=== PATIENT | male | born 1975 | race Two or more races ===

== ENCOUNTER 2018-02-07 09:49 | Emergency (ER) | payer OTHER ==
[~2018-02-07] VITALS: Ht 180.3 cm; Wt 149.7 kg
[~2018-02-07 09:49] MED LIST: ALLO300T2 PO; HYDR-1421; IBUP800T41
[2018-02-07 09:59] VITALS: BP 176/112
== END 2018-02-07 11:47 | disposition home or self-care (01) ==
LOC: ER 09:49
DX: S63.502A Unspecified sprain of left wrist, initial encounter (principal); S60.222A Contusion of left hand, initial encounter; Z88.6 Allergy status to analgesic agent; X58.XXXA Exposure to other specified factors, initial encounter; Y93.89 Activity, other specified; Y92.69 Other specified industrial and construction area as the place of occurrence of the external cause; Y99.8 Other external cause status
CPT/HCPCS: 29125; 73110; 73130

== ENCOUNTER 2020-01-11 00:31 | Inpatient (IN) | payer OTHER ==
[~2020-01-11] VITALS: Ht 177.8 cm; Wt 138.0 kg
[2020-01-11] MEDS ORDERED: dilTIAZem 25 MG/5 ML VIAL IV ONE (00:48)
[2020-01-11 01:06] LABS: Basophils # (auto) 0 10 ^3/uL (0-0.2); Basophils % (auto) 0.4 % (0.0-2.0); Eosinophils # (auto) 0 10 ^3/uL (0-0.8); Eosinophils % (auto) 0.1 % (0.0-7.0); Hematocrit 47.5 % (41.0-53.0); Hemoglobin 15.9 g/dL (13.5-17.5); Lymphocytes % (auto) 8.7 % (10.0-50.0); Mean Corpuscular Hemoglobin 28.8 pg (28.0-32.0); Mean Corpuscular Hgb Conc. 33.5 g/dL (32.0-36.0); Monocytes # (auto) 1.1 10 ^3/uL (0-1.3); Neutrophils % (auto) 80.8 % (37.0-80.0); Nucleated Red Blood Cells % 0.1 %; Platelet Count (auto) 225 10^3/uL (140-450); Red Blood Cells 5.52 10^6/uL (4.5-5.90); Red Cell Distribution Width 16.7 % (11.8-14.3); White Blood Cell 11.2 10^3/uL (4.4-10.8)
[2020-01-11 01:26] LABS: Calcium 8.8 mg/dL (8.5-10.1); Potassium 4.1 mmol/L (3.5-5.1)
[2020-01-11 01:28] LABS: BUN/Creatinine Ratio 12.7
[2020-01-11 01:32] LABS: Bilirubin, Total 0.7 mg/dL (0.2-1.0); Total Protein 7.3 g/dL (6.4-8.2)
[2020-01-11 01:38] LABS: INR 1.03 (0.9-1.15); Partial Thromboplastin Time 28.8 sec (23.0-31.2)
[2020-01-11] MEDS ORDERED: IOHEXOL 350 MG/ML 100ML IJ ONE (01:54)
[2020-01-11] MEDS ORDERED: HYDROmorphone HCL 2 MG/ML VL IV ONE ×2 (02:00→04:15)
[2020-01-11] MEDS ORDERED: ONDANSETRON HCL 4 MG/2 ML VIAL IV ONE (02:00)
[2020-01-11] MEDS ORDERED: ENOXAPARIN SOD 100 MG/1 ML SYRINGE SC ONE (03:30)
[2020-01-11] MEDS ORDERED: ZOLPIDEM TARTRATE 5 MG TAB PO PRN (06:15)
[2020-01-11] MEDS ORDERED: DEXTROSE (50%) 50ML SYRG IV PRN (06:15)
[2020-01-11] MEDS ORDERED: NITROGLYCERIN 0.4 MG SL TAB SL PRN (06:15)
[2020-01-11] MEDS ORDERED: ONDANSETRON HCL 4 MG/2 ML VIAL IV PRN (06:15)
[2020-01-11] MEDS ORDERED: ACETAMINOPHEN 325 MG TAB PO PRN (06:15)
[2020-01-11] MEDS ORDERED: SODIUM CHLORIDE 0.9% 1,000 ML IV SCH (06:15)
[2020-01-11] MEDS: HYDROmorphone HCL 2 MG/ML VL IV PRN ×4 (07:50→22:20)
[2020-01-11] MEDS ORDERED: ACCU-CHEK COMFORT CURVE STRIP VI SCH (08:00)
[2020-01-11] MEDS ORDERED: InsuLIN REG 1unit/0.01ml Soln (100units/ml) SC SCH (08:00)
[2020-01-11] MEDS ORDERED: CARVEDILOL 3.125 MG TAB PO SCH ×2 (10:00→22:00)
[2020-01-11] MEDS ORDERED: CLOPIDOGREL BISULFATE 75 MG TAB PO SCH (10:00)
[2020-01-11] MEDS ORDERED: LISINOPRIL 5 MG TAB PO SCH (10:00)
[2020-01-11] MEDS ORDERED: ENOXAPARIN SOD 100 MG/1 ML SYRINGE SC SCH (10:00)
[2020-01-11] MEDS ORDERED: ENOXAPARIN SOD 120 MG/0.8 ML SYRINGE SC SCH (10:00)
[2020-01-11] MEDS: DOCUSATE SOD 100 MG CAP PO SCH (10:10)
[2020-01-11] MEDS: ASPirin 81 mg TAB PO SCH (10:11)
[2020-01-11] MEDS: ENOXAPARIN SOD 120 MG/0.8 ML SYRINGE SC SCH ×2 (10:12→23:09)
[2020-01-11] MEDS ORDERED: HYDR-531 PO (11:30)
[2020-01-11] MEDS ORDERED: COLC1CAP PO (11:32)
[2020-01-11] MEDS ORDERED: PRED20TA2 PO (11:32)
[2020-01-11] MEDS ORDERED: ASCO100076 PO (11:45)
[2020-01-11] MEDS ORDERED: MULT-928 PO (11:45)
--- NOTE | 2020-01-11 12:19 | NUR ---
Pt being admitted to ICU LIZZETHKT admitted to ICU via gurney on air sampling and monitoring, and portable 02. Patient transfered to bed, connected to ICU monitoring and oxygen, and weighed by bedscale. Patient oriented to Mark Anthony paez RN, unit, room, bed, and unit policies regarding patient care and visiting hours. All questions and concerns addressed, patient verbalized understanding.
[2020-01-11 13:20] VITALS: BP 125/99
[2020-01-11 13:30] VITALS: BP 125/99
--- NOTE | 2020-01-11 13:55 | NUR ---
FAMILY UPDATED ON PATIENT STATUS. ALL QUESTIONS AND CONCERNS ADDRESSED AT THIS TIME
--- NOTE | 2020-01-11 14:22 | NUR ---
ECHO AT BEDSIDE
[2020-01-11 16:00] VITALS: BP 108/78
--- NOTE | 2020-01-11 17:25 | NUR ---
PATIENT RESTING WATCHING TELEVISION REPORTS NO PAIN OR DISTRESS AT THIS TIME
--- NOTE | 2020-01-11 19:35 | NUR ---
REPORT RECEIVED AND ASSUMED CARE; SEE INTERVENTIONS FOR ASSESSMENT; VS STABLE AT THIS TIME, WITH PT. ON NC AT 5L; PT. IN BED, ON HIS CELL PHONE, AND IN A PLEASANT MOOD; WILL CONT. TO MONITOR.
[2020-01-11 20:00] VITALS: BP 105/74
[2020-01-11 22:00] VITALS: BP 106/80
[2020-01-11] MEDS ORDERED: ATORVASTATIN 20 MG TAB PO SCH ×2 (22:00)
[2020-01-12] VITALS (8 sets, daily range): BP systolic 90–145; BP diastolic 63–96
[2020-01-12 03:52] LABS: Basophils # (auto) 0.1 10 ^3/uL (0-0.2); Basophils % (auto) 1.3 % (0.0-2.0); Eosinophils # (auto) 0.1 10 ^3/uL (0-0.8); Eosinophils % (auto) 2.1 % (0.0-7.0); Hematocrit 44.4 % (41.0-53.0); Hemoglobin 14.7 g/dL (13.5-17.5); Lymphocytes # (auto) 2.4 10 ^3/uL (0.4-5.4); Lymphocytes % (auto) 32.5 % (10.0-50.0); Mean Corpuscular Hemoglobin 28.9 pg (28.0-32.0); Mean Corpuscular Hgb Conc. 33.1 g/dL (32.0-36.0); Mean Corpuscular Volume 87.1 fL (80.0-100.0); Monocytes % (auto) 13.6 % (0.0-12.0); Neutrophils # (auto) 3.7 10 ^3/uL (1.6-8.6); Neutrophils % (auto) 50.5 % (37.0-80.0); Nucleated Red Blood Cells % 0.1 %; Platelet Count (auto) 215 10^3/uL (140-450); Red Cell Distribution Width 16.9 % (11.8-14.3); White Blood Cell 7.3 10^3/uL (4.4-10.8)
[2020-01-12 04:08] LABS: Calcium 8.7 mg/dL (8.5-10.1); Magnesium 2.1 mg/dL (1.6-2.6); Potassium 4.5 mmol/L (3.5-5.1)
[2020-01-12 04:14] LABS: BUN/Creatinine Ratio 12.9
[2020-01-12] MEDS: HYDROmorphone HCL 2 MG/ML VL IV PRN ×4 (04:23→20:08)
[2020-01-12] MEDS: ASPirin 81 mg TAB PO SCH (09:59)
[2020-01-12] MEDS ORDERED: predniSONE 20 MG TAB PO SCH (10:00)
[2020-01-12] MEDS ORDERED: COLCHICINE 0.6 MG CAP PO SCH (10:00)
[2020-01-12] MEDS ORDERED: PANTOPRAZOLE 40 MG TAB PO SCH (10:00)
--- NOTE | 2020-01-12 10:00 | NUR ---
CARMENCITA VISITS AND EXMAINES PATIENT - ORDERS RECEIVED.
[2020-01-12] MEDS: DOCUSATE SOD 100 MG CAP PO SCH (10:01)
[2020-01-12] MEDS: ENOXAPARIN SOD 120 MG/0.8 ML SYRINGE SC SCH (10:02)
--- NOTE | 2020-01-12 10:45 | NUR ---
PATIENT VOIDED 400 ML DK RED URINE PER URINAL-WILL INFORM DR GARCIA.
--- NOTE | 2020-01-12 11:15 | NUR ---
DR GARCIA VISITS AND EXAMINES PATIENT - ORDERS RECEIVED. SPOKE TO PEDRO IN CM - STATES NEED PCR SWAB FOR COVID FOR ABDUL. [place] ASSISTANT NOTIFIED LAB OF NEED FOR PCR SWAB
--- NOTE | 2020-01-12 11:40 | NUR ---
COVID PCR TEST OBTAINED AND WALKED TO LAB.
--- NOTE | 2020-01-12 12:00 | NUR ---
01/12/20 1156 Faxed to [facility] clinical packet with request to transfer the patient to a [facility] facility, post stabilization was sent with the packet.
--- NOTE | 2020-01-12 12:15 | NUR ---
[facility] - UPDATED ON PATIENT CONDITION - STATES WILL CALL LATER AFTER CHECKING WITH FRANKO ANDERSON REGARDING PATIENT'S CASE.
--- NOTE | 2020-01-12 15:30 | NUR ---
DR GUERRERO VISITS AND EXAMINES PATIENT - NO ORDERS RECEIVED.
--- NOTE | 2020-01-12 15:30 | NUR ---
RECEIVED CALL FROM HONG AT [facility] ROOM NUMBER AND ETA FOR 2000 TRANSFER TO [facility]. IMAGING RECORDS ORDERED. Addendum: 01/12/20 at 1641 by Jamila Garza RN DR CM DIAL
--- NOTE | 2020-01-12 16:00 | NUR ---
[employer] SALESPERSON INFORMED PATIENT OF TRANSFER TO [place] THIS PM. PATIENT SIGNED CONSENT FOR TRANSFER. UA/C&S URINE SENT TO LAB PER ORDERS. AWAITING PCR COVID RESULT.
--- NOTE | 2020-01-12 16:15 | NUR ---
PLACED CALL TO DR GARCIA RE: TRANSFER TO [facility] PLANNED FOR THIS PM.
--- NOTE | 2020-01-12 16:45 | NUR ---
PAGED DR GARCIA AGAIN TO NOTIFY OF PLANNED TRANSFER TO [place] THIS PM.
--- NOTE | 2020-01-12 17:00 | NUR ---
PANUS CLEANSED WITH SOAP AND WATER, DRIED AND ANTI-FUNGAL BREAM APPLIED - PILLOWCASE APPLIED TO PANUS. NEW ABD BINDER APPLIED.
[2020-01-12 17:05] LABS: Urine Amorphous Crystal FEW /hpf (None Seen); Urine Bacteria NONE SEEN /hpf (None Seen); Urine Blood 3+ /uL (Negative); Urine Mucus FEW (None Seen); Urine Specific Gravity 1.015 (1.001-1.035); Urine WBC 24 /hpf (0 - 3)
--- NOTE | 2020-01-12 19:30 | NUR ---
report received and assumed care; see interventions for assessment; vs stable at this time with patient on NC at 4L; pt. sitting in bed watching t.v. and on cell phone with -pleasant; pt. having pain 10/22 and will medicate; pt. readjusted for comfort; pt. to transfer to [facility] when ems arrives-ETA of 20:00; will cont. to monitor.
--- NOTE | 2020-01-12 21:05 | NUR ---
EMS arrived on unit for transport of patient; report and pt. information packet given to EMS medic.
--- NOTE | 2020-01-12 21:15 | NUR ---
report given to [facility], step-down unit/ SUZETTE Brandon with # ; pt. to go to # [phone]; SUZETTE Brandon direct # .
--- NOTE | 2020-01-12 21:20 | NUR ---
pt. off unit with [facility] and to transport to [facility], rm[address][id number].; pt. v/s stable at this time.
== END 2020-01-12 21:20 | disposition short-term general hospital (02) | DRG 175 ==
LOC: EDUNIT# 00:31 → EDBD 00:31 → ER 00:36 → OVERFLOW 00:37 → ICU WEST 14:16
PROVIDERS: ADMIT Hospitalist; ATTEND Internal Medicine
DX: I26.92 Saddle embolus of pulmonary artery without acute cor pulmonale (principal); I21.A1 Myocardial infarction type 2; J96.01 Acute respiratory failure with hypoxia; I82.432 Acute embolism and thrombosis of left popliteal vein; J98.11 Atelectasis; R65.10 Systemic inflammatory response syndrome (SIRS) of non-infectious origin without acute organ dysfunction; Z68.41 Body mass index [BMI] 40.0-44.9, adult; E78.5 Hyperlipidemia, unspecified; I25.2 Old myocardial infarction; I77.810 Thoracic aortic ectasia; K80.20 Calculus of gallbladder without cholecystitis without obstruction; M10.9 Gout, unspecified; Z82.49 Family history of ischemic heart disease and other diseases of the circulatory system; Z86.718 Personal history of other venous thrombosis and embolism; Z93.3 Colostomy status; Z88.5 Allergy status to narcotic agent; Z20.828 Contact with and (suspected) exposure to other viral communicable diseases; E66.01 Morbid (severe) obesity due to excess calories; Z90.49 Acquired absence of other specified parts of digestive tract
CPT/HCPCS: 36415; 36600; 71045; 71275; 80048; 80053; 80061; 81001; 82805; 82962; 83036; 83735; 83880; 84484; 85025; 85379; 85610; 85730; 87081; 87086; 93306; 93970; 96361; 96374; 96375; 96376; G0378; J2405